=== PATIENT | female | born 1995 | race Caucasian/White ===

== ENCOUNTER 2017-11-25 21:42 | Inpatient (IN) | payer MEDICAID ==
[2017-11-25] MEDS: ONDANSETRON 4 MG INJ IV (23:20)
[2017-11-25] MEDS: SOD CHLORIDE 0.9% 1,000 ML IV (23:20)
[2017-11-25] MEDS: KETOROLAC 30 MG INJ IV (23:21)
[2017-11-25 23:29] LABS: ADD MAN DIFF? NO
[2017-11-25 23:31] LABS: BASOPHILS % 0.4 % (0.0-2.0); EOSINOPHILS # 0.2 10^3/ul (0.0-0.5); EOSINOPHILS % 1.7 % (0.0-7.0); HEMATOCRIT 39.7 % (37.0-47.0); HEMOGLOBIN 13.7 g/dl (12.0-16.0); LYMPHOCYTES % 22.7 % (15.0-51.0); MEAN CORPUSCULAR HEMOGLOBIN 31.7 pg (29.0-33.0); MEAN CORPUSCULAR HGB CONC 34.5 g/dl (32.0-37.0); MEAN CORPUSCULAR VOLUME 91.9 fl (82.0-101.0); MEAN PLATELET VOLUME 10.1 fl (7.4-10.4); MONOCYTE # 0.8 10^3/ul (0.3-0.9); MONOCYTES % 8.6 % (0.0-11.0); NEUTROPHIL # 5.9 10^3/ul (1.6-7.5); NEUTROPHILS % 66.3 % (39.0-77.0); PLATELET COUNT 283 10^3/UL (140-415); RED BLOOD COUNT 4.32 10^6/ul (4.20-5.40); RED CELL DISTRIBUTION WIDTH 12.3 % (11.5-14.5)
[2017-11-25 23:31] LABS: WHITE BLOOD COUNT 8.9 10^3/ul (4.8-10.8)
[2017-11-25 23:37] LABS: ADD UMIC YES; UR ASCORBIC ACID NEGATIVE (NEGATIVE); UR BACTERIA FEW /HPF (NONE SEEN); UR BILIRUBIN (Dip) NEGATIVE (NEGATIVE); UR BLOOD (Dip) NEGATIVE (NEGATIVE); UR CLARITY CLOUDY (CLEAR); UR COLOR YELLOW (YELLOW); UR GLUCOSE (Dip) NEGATIVE (NEGATIVE); UR KETONES (Dip) 1+ mg/dL (NEGATIVE); UR LEUKOCYTE ESTERASE (Dip) 2+ Leu/ul (NEGATIVE); UR MUCUS FEW /HPF (NONE SEEN); UR NITRITE (Dip) NEGATIVE (NEGATIVE); UR RBC 2 /HPF (0-5); UR SPECIFIC GRAVITY (Dip) 1.019 (1.003-1.030); UR SQUAMOUS EPITHELIAL CELL MODERATE /HPF (FEW); UR TOTAL PROTEIN (Dip) NEGATIVE (NEGATIVE); UR UROBILINOGEN (Dip) 2+ mg/dL (NEGATIVE); UR WBC 18 /HPF (0-5)
[2017-11-25 23:55] LABS: ALANINE AMINOTRANSFERASE 62 IU/L (13-69); ALBUMIN 3.9 g/dl (3.3-4.9); ALBUMIN/GLOBULIN RATIO 0.97; ALKALINE PHOSPHATASE 131 IU/L (42-121); ANION GAP 15 (8-16); ASPARTATE AMINO TRANSFERASE 76 IU/L (15-46); BILIRUBIN,INDIRECT 0.5 mg/dl (0-1.1); BILIRUBIN,TOTAL 0.5 mg/dl (0.2-1.3); BLOOD UREA NITROGEN 6 mg/dl (7-20); CALCIUM 9.7 mg/dl (8.4-10.2); CARBON DIOXIDE 27 mmol/L (21-31); CHLORIDE 102 mmol/L (97-110); CREATININE 0.56 mg/dl (0.44-1.00); GLUCOSE 108 mg/dl (70-220); LIPASE 63 U/L (23-300); POTASSIUM 3.5 mmol/L (3.5-5.1); SODIUM 140 mmol/L (135-144); TOTAL PROTEIN 7.9 g/dl (6.1-8.1)
[2017-11-26] MEDS: morphine 4 MG/ML VIAL IV (00:37)
[2017-11-26] MEDS: HYDROmorphONE 2 MG/ML SYG IV (01:51)
[2017-11-26] MEDS: PIPER-TAZO 3.375 GM IV (PMX) 100 ML IVPB (02:30)
[2017-11-26] MEDS ORDERED: NACL 0.9% 3 ML SYG IV (02:30)
[2017-11-26] MEDS ORDERED: DOCUSATE SODIUM 100 MG CAP PO (02:30)
[2017-11-26] MEDS: SOD CHLORIDE 0.9% 1,000 ML IV ×3 (03:28→22:00)
[2017-11-26] MEDS: ACETAMINOPHEN 325 MG TAB PO (03:29)
[2017-11-26] MEDS: metroNIDAZOLE 500 MG/NS (PMX) 100 ML IVPB ×3 (04:58→22:00)
[2017-11-26] MEDS ORDERED: LEVOFLOXACIN 750MG/D5W (PMX) 150 ML IVPB (06:00)
[2017-11-26] MEDS: LEVOFLOXACIN 750MG/D5W (PMX) 150 ML IVPB (06:37)
[2017-11-26] MEDS: ONDANSETRON 4 MG INJ IV ×3 (08:45→21:14)
[2017-11-26] MEDS: HYDROmorphONE 0.5 MG/0.5 ML SYG IV ×3 (09:01→20:59)
[2017-11-26] MEDS ORDERED: DIPHENHYDRAMINE 50 MG INJ IV (18:00)
[2017-11-26] MEDS ORDERED: HYDROmorphONE 1 MG/5 ML IV SYRINGE IV (18:00)
[2017-11-26] MEDS ORDERED: PROPOFOL 20 ML (18:04)
[2017-11-26] MEDS ORDERED: ROCURONIUM 50 MG INJ (18:04)
[2017-11-26] MEDS ORDERED: ONDANSETRON 4 MG INJ (18:05)
[2017-11-26] MEDS ORDERED: MIDAZOLAM 1 MG/ML 2 ML INJ (18:05)
[2017-11-26] MEDS ORDERED: METOCLOPRAMIDE 10 MG INJ (18:05)
[2017-11-26] MEDS ORDERED: ROPIVACAINE 0.5 % 30 ML VIAL (18:05)
[2017-11-26] MEDS ORDERED: KETOROLAC 30 MG INJ (18:07)
[2017-11-26] MEDS ORDERED: GLYCOPYRROLATE 0.4 MG INJ (18:07)
[2017-11-26] MEDS ORDERED: NEOSTIGMINE 3 MG/3 ML SYRINGE (18:07)
[2017-11-26] MEDS: BUPIVACAINE 0.25%/EPI (SDV) 30 ML INJ (18:40)
[2017-11-26] MEDS: MEPERIDINE 25 MG INJ IV (19:20)
[2017-11-26] MEDS ORDERED: FENTAnyl 50 MCG/ML VIAL IV ×3 (19:30)
[2017-11-26] MEDS ORDERED: OXYCODONE/ACETAMINOPHEN (5/325) TAB PO ×2 (19:30)
[2017-11-26] MEDS: morphine 2 MG INJ IV (19:34)
[2017-11-26] MEDS: HYDROmorphONE 1 MG/5 ML IV SYRINGE IV ×2 (19:47→19:53)
[2017-11-27] MEDS: HYDROmorphONE 0.5 MG/0.5 ML SYG IV ×6 (01:15→21:51)
[2017-11-27] MEDS: LEVOFLOXACIN 750MG/D5W (PMX) 150 ML IVPB (05:09)
[2017-11-27 05:58] LABS: ADD MAN DIFF? NO
[2017-11-27 06:09] LABS: BASOPHILS % 0.4 % (0.0-2.0); EOSINOPHILS # 0.1 10^3/ul (0.0-0.5); EOSINOPHILS % 1.4 % (0.0-7.0); HEMATOCRIT 34.2 % (37.0-47.0); HEMOGLOBIN 11.5 g/dl (12.0-16.0); LYMPHOCYTES # 2.2 10^3/ul (0.8-2.9); LYMPHOCYTES % 29.9 % (15.0-51.0); MEAN CORPUSCULAR HEMOGLOBIN 31.5 pg (29.0-33.0); MEAN CORPUSCULAR HGB CONC 33.6 g/dl (32.0-37.0); MEAN CORPUSCULAR VOLUME 93.7 fl (82.0-101.0); MEAN PLATELET VOLUME 10.5 fl (7.4-10.4); MONOCYTE # 0.7 10^3/ul (0.3-0.9); MONOCYTES % 10.2 % (0.0-11.0); NEUTROPHIL # 4.2 10^3/ul (1.6-7.5); NEUTROPHILS % 57.7 % (39.0-77.0); PLATELET COUNT 264 10^3/UL (140-415); RED BLOOD COUNT 3.65 10^6/ul (4.20-5.40); RED CELL DISTRIBUTION WIDTH 11.8 % (11.5-14.5)
[2017-11-27 06:09] LABS: WHITE BLOOD COUNT 7.2 10^3/ul (4.8-10.8)
[2017-11-27 06:39] LABS: ALANINE AMINOTRANSFERASE 67 IU/L (13-69); ALBUMIN 2.5 g/dl (3.3-4.9); ALKALINE PHOSPHATASE 88 IU/L (42-121); ANION GAP 10 (8-16); ASPARTATE AMINO TRANSFERASE 52 IU/L (15-46); BILIRUBIN,INDIRECT 0.4 mg/dl (0-1.1); BILIRUBIN,TOTAL 0.4 mg/dl (0.2-1.3); BLOOD UREA NITROGEN 2 mg/dl (7-20); CALCIUM 8.8 mg/dl (8.4-10.2); CARBON DIOXIDE 27 mmol/L (21-31); CHLORIDE 103 mmol/L (97-110); CHOL/HDL RATIO 2.8 RATIO; CHOLESTEROL 109 mg/dl (100-200); CREATININE 0.42 mg/dl (0.44-1.00); GLUCOSE 71 mg/dl (70-220); HDL CHOLESTEROL 38 mg/dl (33-83); LDL CHOLESTEROL,CALCULATED 60 mg/dl; MAGNESIUM 1.6 mg/dl (1.7-2.5); POTASSIUM 4.3 mmol/L (3.5-5.1); SODIUM 136 mmol/L (135-144); TRIGLYCERIDES 53 mg/dl (0-149)
[2017-11-27 06:50] LABS: HEMOGLOBIN A1C 4.9 % (0-5.9)
[2017-11-27] MEDS: metroNIDAZOLE 500 MG/NS (PMX) 100 ML IVPB ×3 (07:03→21:53)
[2017-11-27] MEDS: SOD CHLORIDE 0.9% 1,000 ML IV ×2 (08:30→13:44)
[2017-11-27] MEDS: DOCUSATE SODIUM 100 MG CAP PO ×2 (13:49→21:10)
[2017-11-27] MEDS: BISACODYL (EC) 5 MG TAB PO (21:10)
[2017-11-28] MEDS: HYDROmorphONE 0.5 MG/0.5 ML SYG IV ×4 (02:02→14:22)
[2017-11-28] MEDS: ONDANSETRON 4 MG INJ IV ×2 (02:20→12:29)
[2017-11-28] MEDS: LEVOFLOXACIN 750MG/D5W (PMX) 150 ML IVPB (05:18)
[2017-11-28 05:50] LABS: ADD MAN DIFF? NO
[2017-11-28 05:55] LABS: BASOPHILS % 0.3 % (0.0-2.0); EOSINOPHILS # 0.1 10^3/ul (0.0-0.5); EOSINOPHILS % 1.2 % (0.0-7.0); HEMATOCRIT 34.1 % (37.0-47.0); HEMOGLOBIN 11.5 g/dl (12.0-16.0); LYMPHOCYTES # 1.5 10^3/ul (0.8-2.9); LYMPHOCYTES % 23.4 % (15.0-51.0); MEAN CORPUSCULAR HEMOGLOBIN 31.3 pg (29.0-33.0); MEAN CORPUSCULAR HGB CONC 33.7 g/dl (32.0-37.0); MEAN CORPUSCULAR VOLUME 92.7 fl (82.0-101.0); MEAN PLATELET VOLUME 10.1 fl (7.4-10.4); MONOCYTE # 0.7 10^3/ul (0.3-0.9); MONOCYTES % 11.3 % (0.0-11.0); NEUTROPHIL # 4.1 10^3/ul (1.6-7.5); NEUTROPHILS % 63.5 % (39.0-77.0); PLATELET COUNT 274 10^3/UL (140-415); RED BLOOD COUNT 3.68 10^6/ul (4.20-5.40); RED CELL DISTRIBUTION WIDTH 11.9 % (11.5-14.5)
[2017-11-28 05:55] LABS: WHITE BLOOD COUNT 6.4 10^3/ul (4.8-10.8)
[2017-11-28] MEDS: metroNIDAZOLE 500 MG/NS (PMX) 100 ML IVPB ×2 (06:23→14:22)
[2017-11-28 06:38] LABS: BLOOD UREA NITROGEN 2 mg/dl (7-20); CALCIUM 8.4 mg/dl (8.4-10.2); CARBON DIOXIDE 26 mmol/L (21-31); CHLORIDE 100 mmol/L (97-110); CREATININE 0.42 mg/dl (0.44-1.00); GLUCOSE 88 mg/dl (70-220); MAGNESIUM 1.7 mg/dl (1.7-2.5); PHOSPHORUS 3.9 mg/dl (2.5-4.9); POTASSIUM 3.5 mmol/L (3.5-5.1)
[2017-11-28 07:00] LABS: ANION GAP 14 (8-16); SODIUM 136 mmol/L (135-144)
[2017-11-28] MEDS: DOCUSATE SODIUM 100 MG CAP PO (08:44)
== END 2017-11-28 18:30 | disposition home or self-care (01) | DRG 418 ==
LOC: FTE 21:42 → 2NE 11-26 02:16
PROC: 0FT44ZZ Resection of Gallbladder, Percutaneous Endoscopic Approach (ICD-10-PCS; principal; 2017-11-26 18:10)
DX: K80.00 Calculus of gallbladder with acute cholecystitis without obstruction (principal); N39.0 Urinary tract infection, site not specified; F17.210 Nicotine dependence, cigarettes, uncomplicated; Z88.0 Allergy status to penicillin
CPT/HCPCS: 36415; 76705; 80048; 80053; 80061; 81001; 81025; 83036; 83690; 83735; 84100; 84443; 85025; 87086; 88304; 96374; 96375; 99285-25

== ENCOUNTER 2017-12-25 13:16 | Emergency (ER) | payer MEDICAID | END 2017-12-25 15:49 | disposition home or self-care (01) | LOC: FTE 15:49 | DX: Z48.02 Encounter for removal of sutures (principal); Z87.891 Personal history of nicotine dependence | CPT/HCPCS: 99283; Z7502 ==

== ENCOUNTER 2018-09-21 00:28 | Emergency (ER) | payer SELFPAY, MEDICAID ==
[2018-09-21 01:54] LABS: ADD MAN DIFF? NO
[2018-09-21 01:56] LABS: BASOPHIL # 0.1 10^3/ul (0.0-0.1); BASOPHILS % 0.9 % (0.0-2.0); EOSINOPHILS # 0.5 10^3/ul (0.0-0.5); HEMOGLOBIN 11.9 g/dl (12.0-16.0); LYMPHOCYTES # 2.3 10^3/ul (0.8-2.9); LYMPHOCYTES % 28.3 % (15.0-51.0); MEAN CORPUSCULAR HEMOGLOBIN 31.3 pg (29.0-33.0); MEAN CORPUSCULAR HGB CONC 32.2 g/dl (32.0-37.0); MEAN CORPUSCULAR VOLUME 97.4 fl (82.0-101.0); MEAN PLATELET VOLUME 9.7 fl (7.4-10.4); MONOCYTE # 0.8 10^3/ul (0.3-0.9); NEUTROPHIL # 4.4 10^3/ul (1.6-7.5); NEUTROPHILS % 54.4 % (39.0-77.0); PLATELET COUNT 249 10^3/UL (140-415); RED CELL DISTRIBUTION WIDTH 13.9 % (11.5-14.5)
[2018-09-21 01:56] LABS: WHITE BLOOD COUNT 8.1 10^3/ul (4.8-10.8)
[2018-09-21] MEDS: LACTATED RINGER'S 1,000 ML IV (02:10)
[2018-09-21 02:13] LABS: ALANINE AMINOTRANSFERASE 27 IU/L (13-69); ALBUMIN 4.3 g/dl (3.3-4.9); ALBUMIN/GLOBULIN RATIO 1.22; ALKALINE PHOSPHATASE 190 IU/L (42-121); ANION GAP 11 (5-13); ASPARTATE AMINO TRANSFERASE 23 IU/L (15-46); BILIRUBIN,INDIRECT 0.4 mg/dl (0-1.1); BILIRUBIN,TOTAL 0.4 mg/dl (0.2-1.3); BLOOD UREA NITROGEN 17 mg/dl (7-20); CALCIUM 9.9 mg/dl (8.4-10.2); CARBON DIOXIDE 25 mmol/L (21-31); CHLORIDE 108 mmol/L (97-110); CREATININE 0.56 mg/dl (0.44-1.00); Estimated GFR > 60 mL/min (>60); GLUCOSE 97 mg/dl (70-220); POTASSIUM 3.6 mmol/L (3.5-5.1); SODIUM 144 mmol/L (135-144); TOTAL PROTEIN 7.8 g/dl (6.1-8.1)
[2018-09-21 02:24] LABS: TROPONIN-I < 0.012 ng/ml (0.000-0.120)
[2018-09-21] MEDS: HYDROCODONE/APAP (5/325) TAB PO (02:37)
== END 2018-09-21 02:43 | disposition home or self-care (01) ==
LOC: E/R 00:28
DX: G89.18 Other acute postprocedural pain (principal); F17.210 Nicotine dependence, cigarettes, uncomplicated; R06.02 Shortness of breath; Z93.0 Tracheostomy status
CPT/HCPCS: 71045; 80053; 81025; 84484; 85025; 99284-25

== ENCOUNTER 2018-10-02 01:08 | Emergency (ER) | payer SELFPAY ==
[2018-10-02] MEDS: KETOROLAC 30 MG INJ IM (02:35)
[2018-10-02] MEDS: HYDROCODONE/APAP (10/325) TAB PO (04:43)
[2018-10-02] MEDS: ONDANSETRON (ODT) 4 MG TAB ODT (04:43)
[2018-10-02] MEDS: FAMOTIDINE 20 MG TAB PO (04:43)
== END 2018-10-02 05:15 | disposition home or self-care (01) ==
LOC: FTE 05:15
DX: S82.252A Displaced comminuted fracture of shaft of left tibia, initial encounter for closed fracture (principal); F17.210 Nicotine dependence, cigarettes, uncomplicated; X58.XXXA Exposure to other specified factors, initial encounter; Y92.9 Unspecified place or not applicable
CPT/HCPCS: 29505; 73562; 81025; 93971; 96372; 99285-25